=== PATIENT | female | born 1935 | race Caucasian/White ===

== ENCOUNTER 2018-01-22 12:53 | Emergency (ER) | payer OTHER ==
[~2018-01-22] VITALS: Ht 160 cm; Wt 51.3 kg
[~2018-01-22 12:53] MED LIST: ALTOPREV20 MG PO; ASA81 MG; ATACAND32 MG PO; AVAPRO300 MG; CARDURA8 MG; CLARITIN-D1 TAB.SR1 PO; EVISTA60 MG; PLAVIX75 MG PO; TOPROL XL50 MG PO; TUSSI-PRES LIQ118 ML PO; ZOLOFT20 MG/ML
[2018-01-22] MEDS ORDERED: CELEBREX200MG (13:53)
[2018-01-22] MEDS ORDERED: CLOTRIMAZOLE30 ML (13:54)
[2018-01-22] MEDS ORDERED: ALAVERT10 M1 (13:55)
[2018-01-22] MEDS ORDERED: REDNESS RELIEF15 ML (13:55)
[2018-01-22] MEDS ORDERED: AZELASTINE137 MCG/0. (13:56)
[2018-01-22] MEDS ORDERED: XOPENEX HFA15 GM (13:56)
[2018-01-22] MEDS ORDERED: FLONASE16 GM (13:57)
[2018-01-22] MEDS ORDERED: FLOVENT DISKUS50 MCG (13:57)
== END 2018-01-22 15:31 | disposition home or self-care (01) ==
LOC: ER 12:53
DX: J01.80 Other acute sinusitis (principal)

== ENCOUNTER 2018-05-22 16:25 | Emergency (ER) | payer OTHER ==
[~2018-05-22] VITALS: Ht 157.5 cm; Wt 46.7 kg
[~2018-05-22 16:25] MED LIST changes: +ALAVERT10 M1; +AZELASTINE137 MCG/0.; +CELEBREX200MG; +CLOTRIMAZOLE30 ML; +FLONASE16 GM; +FLOVENT DISKUS50 MCG; +REDNESS RELIEF15 ML; +XOPENEX HFA15 GM
[2018-05-22] MEDS ORDERED: VITAMIN D35000 UNI1 (17:15)
[2018-05-22] MEDS ORDERED: ATIVAN0.5 MG (17:16)
[2018-05-22] MEDS ORDERED: ESCITALOPRAM OX10 MG (17:16)
== END 2018-05-22 17:48 | disposition home or self-care (01) ==
LOC: ER 16:25
DX: S00.83XA Contusion of other part of head, initial encounter (principal); S00.532A Contusion of oral cavity, initial encounter; S40.021A Contusion of right upper arm, initial encounter; W18.39XA Other fall on same level, initial encounter; Y93.89 Activity, other specified; Y92.238 Other place in hospital as the place of occurrence of the external cause; Y99.8 Other external cause status

== ENCOUNTER 2019-08-02 07:47 | Outpatient (CLI) | payer OTHER ==
[~2019-08-02 07:47] MED LIST changes: +ATIVAN0.5 MG; +ESCITALOPRAM OX10 MG; +VITAMIN D35000 UNI1
== END 2019-08-02 07:48 | disposition home or self-care (01) ==
LOC: RX STUDY 07:47
DX: R13.19 Other dysphagia (principal)

== ENCOUNTER 2019-08-22 03:57 | Emergency (ER) | payer OTHER ==
[~2019-08-22] VITALS: Ht 157.5 cm; Wt 46.3 kg
== END 2019-08-22 09:37 | disposition home or self-care (01) ==
LOC: ER 03:57
DX: S01.112A Laceration without foreign body of left eyelid and periocular area, initial encounter (principal); S59.802A Other specified injuries of left elbow, initial encounter; W18.09XA Striking against other object with subsequent fall, initial encounter; Y93.89 Activity, other specified; Y92.018 Other place in single-family (private) house as the place of occurrence of the external cause; Y99.8 Other external cause status

== ENCOUNTER 2019-08-27 14:09 | Emergency (ER) | payer OTHER ==
[~2019-08-27] VITALS: Ht 162.6 cm; Wt 503.5 kg
== END 2019-08-27 16:13 ==
LOC: ER 14:09
DX: S00.83XA Contusion of other part of head, initial encounter (principal); W18.09XA Striking against other object with subsequent fall, initial encounter; Y93.89 Activity, other specified; Y92.098 Other place in other non-institutional residence as the place of occurrence of the external cause; Y99.8 Other external cause status

== ENCOUNTER 2021-09-14 15:54 | Emergency (ER) | payer OTHER ==
[~2021-09-14] VITALS: Ht 157.5 cm; Wt 41.3 kg
== END 2021-09-14 19:34 | disposition home or self-care (01) ==
LOC: ER 15:54
DX: S01.81XA Laceration without foreign body of other part of head, initial encounter (principal); S50.811A Abrasion of right forearm, initial encounter; W18.09XA Striking against other object with subsequent fall, initial encounter; Y93.89 Activity, other specified; Y92.018 Other place in single-family (private) house as the place of occurrence of the external cause; Y99.8 Other external cause status